=== PATIENT | female | born 1945 | race Asian ===

== ENCOUNTER 2017-04-01 01:19 | Inpatient (IN) | payer OTHER, MEDICARE ==
[~2017-04-01] VITALS: Ht 152.4 cm; Wt 54.0 kg
--- NOTE | 2017-04-01 10:05 | Operative Report ---
Operative/Inv Procedure Report Surgery Date: 04/01/17 Name of Procedure: Left total knee arthroplasty. Pre-Operative Diagnosis: Left knee primary osteoarthritis. Post-Operative Diagnosis: Same. Estimated Blood Loss: less than 50ml Surgeon/Icer Hand: MICHI LO MD / DEBBIE ORDOÑEZ Anesthesia: moderate sedation, Spinal Monitors: EKG/BP/O2 Saturation IV Fluids: Lactated Ringer's. Implants: [employer] PS Knee Components 1. Size 2 Posterior Stabilized Femoral Component. 2. Size 2 Tibial Baseplate 3. Size 2 x 16 mm Tibial Bearing Insert. 4. Size 27 x 8 mm symmetric Patella Component. Urine Output: Adequate. Drains: None. Specimens: Portions of bone and cartilage sent to pathology for histopathological documentation. Microbiology: None. Tourniquet: 62 minutes at 300 mmHg. Complications: None known. Condition: Stable. Operative Indication: The patient is a 71-year-old healthy female with a multiple year progressive history of left knee pain and slowly progressive deformity. Her knee pain was interfering increasingly with quality of life and daily activities. Her treatment was initially conservative and nonoperative with medications and modalities and bracing along with therapy and home exercises. Symptoms continued and we moved on to injection therapy to the knee. This worked for a while but eventually symptoms progressed further. At this point we did discuss the risks and benefits and expected outcomes of continued attempts at nonoperative management which would no longer felt to be acceptable to the patient versus that of operative intervention with total knee arthroplasty. All the patient's questions and her family members who were present at her office visits questions were answered at length. The patient did decide that she would like to move on with total knee arthroplasty for more definitive treatment of her osteoarthritis pain symptoms. Operative/Procedure Note Note: DATE OF SERVICE: 04/01/2017. PREOPERATIVE DIAGNOSIS: Left knee primary osteoarthritis. POSTOPERATIVE DIAGNOSIS: Same PROCEDURE TITLE: Left total knee arthroplasty. SURGEON: Michi Lo M.D. COMMERCIAL LEASING AGENT: DEBBIE Ordoñez. FINDINGS: 1. Same as preop ANESTHESIA: Spinal plus sedation. MONITORS: EKG, BP, O2 saturation, BIS. IV FLUIDS: Lactated Ringer's. IMPLANTS PLACED: [employer] PS Knee Components 1. Size 2 Posterior Stabilized Femoral Component. 2. Size 2 Tibial Baseplate 3. Size 2 x 16 mm Tibial Bearing Insert. 4. Size 27 x 98mm symmetric Patella Component. URINE OUTPUT: Adequate. EBL: Less than 50 ml. DRAINS: None. SPECIMEN: Portions of bone and cartilage sent to pathology for histopathological analysis. TOURNIQUET: 62 minutes at 300 mmHg. COMPLICATIONS: None known. OPERATIVE INDICATIONS: See above. PROCEDURE DESCRIPTION/FINDINGS: The patient was brought to the operating room and placed on the operating room table in the supine position. The patient was then elevated to a seated position at which time the anesthesia staff administered a spinal anesthetic. The patient was then returned to the supine position on the OR table. A dose of IV antibiotics was given for infection prophylaxis. 1 gram of tranexamic acid was given to help minimize acute blood loss during and immediately after surgery. A well-padded tourniquet was applied to the proximal portion of the left thigh. A López catheter was placed in sterile fashion by the nursing staff. All bony prominences were well padded. The nonsterile portion of the Rocha leg tamayo was secured to the OR table. The left foot and ankle were wrapped in a plastic barrier drape secured with tape. The left lower extremity was then prepped and draped in the usual sterile fashion. Bony landmarks and a planned midline anterior longitudinal skin incision were marked on the skin using a sterile marker. An Ioban drape was then applied over and about the knee. The sterile plate for the Rocha leg tamayo was secured in position on the OR table. The left leg, ankle and foot were then padded and secured to the sterile stirrup for the Rocha leg tamayo. The extremity was then exsanguinated with an Esmarch bandage and the pneumatic tourniquet was inflated to a pressure of 300 mm Hg. The skin incision was made with a #10 scalpel blade. Sharp dissection continued down through the skin and subcutaneous tissues down to the level of the extensor mechanism. Full-thickness skin with subcutaneous tissue flaps were raised in a medial and lateral direction sharply with a combination of scalpel and Metzenbaum scissors. Hemostasis was achieved using electrocautery. A medial parapatellar arthrotomy was performed and extended proximally into the quadriceps tendon and distally to the medial side of the tibial tubercle. The patella was everted and a synovectomy about the patella was performed sharply with a scalpel. Osteophytes about the articular margin of the patella were excised using rongeurs. The retropatellar fat pad was excised sharply with a scalpel. A synovectomy of the supracondylar region at the anterior distal femur as well as about the medial and lateral gutters of the knee was also performed sharply, achieving hemostasis with electrocautery. Inspection of the patellofemoral articular cartilage showed full-thickness chondral loss at the trochlear groove as well as significant cartilage wear with fissuring and fibrillation at the patella. The patellar thickness measured 21 mm at the thickest portion of the patella using the patellar caliper. The sagittal saw was used to make a provisional transverse resection cut removing the patella facets and articular cartilage. The patella component sizing template was placed onto the cut surface of the patella. In this case we elected to go with a 27 mm diameter symmetric patellar component. This patellar component has a polyethylene thickness of 8 mm. We therefore resected some more patellar bone to equalize as best as possible the amount of bone resected to correlate with the thickness of the patella component. We therefore in this case resected patellar bone until we were left with a cut patella measuring 13 mm thick as measured with the patellar caliper. The patella drill guide was placed onto the cut surface of the patella and medialized slightly to help with patellofemoral tracking. The patellar component fixation holes were drilled through the drill guide with the appropriate drill. The metal protector for the cut surface of the patella was applied and the patella was subluxated laterally out of the way in to the lateral gutter. The knee was flexed and provisional excision of the medial and lateral menisci as well as the cruciate ligaments were performed sharply with a scalpel. Synovectomy of the intercondylar notch of the distal femur was performed sharply as well. Osteophytes about the intercondylar notch were taken down with rongeurs. The intramedullary drill was used to open the distal femur in a distal to proximal direction beginning roughly 1 cm anterior to the femoral attachment site of the posterior cruciate ligament. The intramedullary monique was attached to the femoral alignment guide which was set at 6 degrees of valgus and with the universal resection block also attached for a planned distal femoral resection of 10 millimeters. The intramedullary monique was impacted through the hole in the distal femur and advanced until the attached femoral alignment guide was resting against the most prominent portion of the distal femoral condyles. The femoral alignment guide was then secured in position with pins. The distal resection guide was pinned to the anterior femur. The intramedullary monique and femoral alignment guide were then removed leaving the distal resection guide in place. The modular capture for the sagittal saw was attached and the distal femoral resection cuts were made with the sagittal saw making sure to protect the soft tissues. The distal femoral resection guide was removed and the distal femoral resection cut was checked and was felt to be satisfactory. The femoral sizer was set for 3 degrees of external rotation and then it was placed in to position on the cut surface of the distal femur with the feet of the sizer slipped underneath the femoral condyles. We determined the level of anterior bone resection and femoral sizing in this case to be best with a size 2 as checked with both the femoral stylus and the tanya wing checked through both the medial and lateral femoral sizing slots. Once we determined the appropriate level for anterior bone resection, and consequently the proper femoral sizing, the peg drill to make holes for placement of the four in one cutting block was drilled through the EPI holes in the femoral sizing jig. The femoral sizer was removed, and the four in one cutting block was secured to the distal femur with the fixation pegs placed in to the previously drilled holes made through the femoral sizing jig. Retractors were placed for soft tissue protection and the distal femoral resection cuts were made sequentially beginning with the anterior femoral cut, followed by the posterior condyle cuts, followed by the anterior chamfer cut, and finally the posterior chamfer cut. Bone fragments following the cuts were removed. A size 2 PS box cutting guide was placed on to the cut distal femur and positioned optimally in a medial-lateral direction and then pinned in position. The box chisel was inserted in to the slot for the box cutting guide and then impacted with a mallet until it was fully seated. A sagittal saw was then used to make the bone cuts for the medial and lateral edges of the bone to be resected for the box cut. The box cut bone was then removed after freeing it from soft tissue attachments. The box cutting guide was removed and attention was turned to preparation of the proximal tibia. The pickle fork retractor was placed behind the upper central tibial plateau and used to lever the proximal tibia anteriorly. Final resection of the remnants of the medial and lateral menisci and the tibial intercondylar insertion site of the ACL was performed sharply with a scalpel. The intramedullary drill was used to open a hole in the intercondylar region in line with the tibial medullary canal. The tibial intramedullary alignment monique pre-assembled with the tibial resection guide set for a 3 degree posterior slope was placed into the tibial intramedullary canal and advanced until the tibial stylus for a 4 mm bone resection was resting at the lowest level of the medial compartment. The tibial resection guide was then pinned in position. The modular capture for the sagittal saw was attached and then the sagittal saw was used to make the proximal tibia resection cut, making sure to protect the soft tissues with retractors. The cut proximal tibia bone was removed after freeing it up from soft tissue attachments. Osteophytes along the upper margin of the tibia at the level of the bone resection were removed with rongeurs. The tibial tray sizing templates were placed on to the cut surface of the proximal tibia and used to determine the best size for the tibial tray component. In this case a size 2 sizing template fit very nicely. We next removed excess osteophytes from the posterior femoral condyles with an osteotome and removed the bone fragments with a curette. We next impacted a size 2 trial femoral component in to position and visually confirmed it to be well seated and in good position. We next placed a size 2 trial tibial template with a provisional 11 millimeters thickness trial tibial spacer on to the cut surface of the knee and reduced the knee. The knee was checked for stability and extension and there was some laxity on both medial and lateral stress testing of the knee somewhat asymmetrical with increased varus laxity on stress testing of the LCL. We performed a limited medial soft tissue release which did make the laxity more or less symmetric. The knee was put through range of motion. She showed slight hyperextension of the knee in the sagittal plane. She also showed knee flexion to approximately 140. The knee was extended again and the trial tibial component was allowed to rotate on its own into slight internal rotation. The upper anterior tibial cortical bone was scored with an electrocautery in line with the notches on the anterior aspect of the tibial trial to set proper rotation of the true tibial components when placed. A size 27 mm trial symmetric patellar component was placed and patellofemoral tracking was assessed. In this case we felt that the patella was tracking laterally. We performed a progressive lateral release which did improve things. After a complete progressive lateral release there was still a tendency for the patella to subluxate laterally, but certainly to a lesser degree following the lateral release. It was my feeling that the patient's tendency for the patella to subluxate laterally was due to the exaggerated tibiofemoral valgus alignment in the coronal plane demonstrated on standing AP films of the knees. The tibial trial component was then pinned in position after removing the trial spacer. An appropriate size keel punch guide was placed in to the tibial trial component and then the keel punch was impacted using a mallet. The keel punch and guide were removed as was the tibial trial template. The trial femoral and patellar components were also removed. With the trial components now all removed we used this opportunity to inject the posterior and posteromedial and posterolateral joint capsule with the Exparel liposomal bupivacaine to help with operative analgesia. Attention was now directed towards placement of the true components. All cut bony surfaces as well as the soft tissues about the bone were copiously irrigated with a pulsatile lavage system. The irrigated cut surfaces of the bone were dried with lap pads. While this was being performed, the proper sized true femoral, tibial, and patellar components for implantation were opened and cement was mixed per protocol. Once the cement was set to the proper consistency, attention was directed towards cementing the true components in position. Beginning with the tibial component we applied some cement to the cut upper surface of the proximal tibia and also injected some cement down in to the intramedullary canal through the keel punch slot made earlier. The cement on the upper tibia was manually pressed and massaged in to the bone for better interdigitation. A thin layer of cement was also applied to the back side of a size 2 tibial tray component. The tibial tray component was then impacted in to position on to the cut surface of the proximal tibia making sure that the orientation of the keel of the component matched the keel slot cut in to the proximal tibia. Excess cement was removed from around the margins of the proximal tibia with curettes, and pickups and scalpels. The tibial tray was further impacted and further extruded cement from the margins of the base plate was again removed in similar fashion. We next turned our attention to the distal femur where cement was applied with a cement gun and then interdigitated manually in similar fashion to the bone of the anterior and distal femur, leaving the posterior femoral condyle cuts free from cement for the moment. A thin layer of cement was applied to the posterior femoral condyles of a size 2 femoral component and then the femoral component was impacted in to position. In similar fashion as before, excess cement was removed, the femoral component was impacted further and additional excess cement was once again removed. We next placed a trial 13 mm thickness tibial bearing component in place and reduced the knee and checked stability and range of motion. Once again we felt that there was some hyperextension of the knee as well as some symmetric laxity in both varus and valgus stress testing of the knee even with the 13 mm thickness tibial trial bearing component in place. We therefore moved up the next size up to a 16 mm thickness tibial trial bearing component. This was put in position and the knee was reduced and put through range of motion and stability testing. We still had excellent flexion to 135-140. We had full extension but no real hyperextension. Laxity testing was much more satisfactory on both varus and valgus stress testing. We therefore removed the trial tibial bearing component. We irrigated the tibial tray and back of the knee again and then we inserted a 16 mm thick size 2 tibial bearing component and impacted it until it was locked within the tibial tray component. We checked fixation of the bearing component within the tibial tray and were satisfied. After making sure that there was no bone or cement fragments or any other obstruction to reduction, we reduced the tibial component to the femoral component and maintained the knee fully extended while the fixation cement set up. We next turned our attention to placement of the patellar component. Once again cement was applied and then manually interdigitated in to the fibers of the cut surface of the patella as well as in to the fixation holes for the patellar component. A thin layer of cement was applied to the back surface of a size 27 mm symmetric patellar component and then the patellar component was placed on to the cut surface of the patella with the pegs for the patellar component properly positioned in to the peg holes in the bone. A patellar compression clamp was placed to temporarily secure the patellar component in position. Once again all excess cement was removed and the cement was allowed to set up. The knee was put through final range of motion and stability testing, all of which was felt to be acceptable. Patellofemoral tracking was checked again and did still show a slight tendency to subluxate laterally. This was correctable with slight finger pressure 1. I felt that there was no other lateral release or change in components that I could use to improve the tendency of the patella to laterally subluxate and that the cause of the residual lateral subluxation was due to the patient's natural anatomy. With the true components now implanted our attention was directed towards closure. The knee joint and all prosthetic components as well as the soft tissues were irrigated with a pulsatile lavage. Another gram of tranexamic acid was infused by the anesthesia staff prior to dropping the tourniquet. The medial and lateral gutters and joint capsule and surrounding soft tissues as well as the anterior joint capsule and the extensor mechanism were then all injected with the remainder of the Exparel liposomal bupivacaine. At this time we the tourniquet was deflated after tourniquet time of 62 minutes. Hemostasis was achieved with electrocautery and manual pressure. The arthrotomy was repaired using size #1 Vicryl sutures placed in interrupted [id number] fashion. The soft tissues were irrigated once again with the pulsatile lavage. The subcutaneous tissues were closed in layers using #1 Vicryl suture placed in interrupted buried fashion in the deeper subcutaneous tissues. The more superficial subcutaneous tissues were repaired using 2-0 Vicryl placed in interrupted buried fashion as well. The skin margins were then approximated using a skin stapler. The Hemovac drain was connected to the tubing. The wounds were all washed and dried. Adaptic dressing was placed over the Steri- Strips line and about the Hemovac drain tubing exit site in the skin. Gauze dressings followed by abdominal pads were applied over the wound and the Hemovac drain. Webril cotton padding was applied about the knee over the dressings. The extremity was then wrapped with Edgar bandages from the toes distally to the upper thigh proximally to hold the dressings in place and to also provide some compression to the knee joint and to the extremity in general postoperatively to minimize swelling of the knee and hopefully minimize venous pooling in the extremity which might result in a DVT. The patient was extubated and then awakened from general anesthesia and then transferred to a hospital bed and brought to the PACU having tolerated the procedure well.
[2017-04-01 11:30] VITALS: BP 106/68
--- NOTE | 2017-04-01 12:25 | PN- Orthopedic ---
See Addendum Subjective Subjective: The patient was seen this afternoon postoperatively. She reports with her daughter interpreting that she is comfortable and currently without pain at the current time. She had no other complaints and has yet to work with physical therapy. Objective Vital Signs and I&Os Vital Signs Date Time Temp Pulse Resp B/P B/P Pulse O2 O2 Flow FiO2 Mean Ox Delivery Rate 04/01 1130 95.2 84 18 106/68 96 Room Air Intake & Output 04/01 1600 04/01 0804/01 0000 03/31 0803/31 0000 Intake Total Output Total Balance Patient 120 lb Weight Weight Estimated Measurement Method I's and O's: 2000 ML's in of lactated Ringer's/490 ML's out of urine via López catheter/EBL 50 ML's Physical Exam: Gen.: Alert and in no obvious distress Skin: Warm and dry Cardiac: S1-S2 regular Pulmonary: Bilateral breath sounds were equal and slightly decreased at bases Extremities: Bilateral lower extremities are warm without calf tenderness or significant edema. Was motor and sensory were intact. Left knee surgical dressing is clean, dry, and intact. It was On-Q pain pump in place. Assessment/Plan Assessment/Plan Assessment: 71-year-old female status post left total knee arthroplasty. Postoperative the patient is progressing as expected and her pain is under adequate control. Plan: Out of bed with physical therapy patient is weightbearing as tolerated Continue IV fluids and López catheter until the morning Strict I's and O's Follow-up morning laboratory studies 1 dose of postoperative prophylactic antibiotics Advance diet as tolerated Resume home medications GI and DVT prophylaxis first dose of Coumadin to be given tonight Incentive spirometry Core Measures/Miscellaneous López Catheter Date In: 04/01/17 Still Needed? Yes Venous Thromboembolism VTE Risk Factors: Age > 40, Surgery VTE Contraindications: No Contraindications VTE Diagnosis: No Beta Luis Fernando Is Beta Luis Fernando a Home Med? No Antibiotics Is Patient on Antibiotics? Yes If Yes: prophylaxis
[2017-04-01 14:31] VITALS: BP 116/80
[2017-04-01 16:34] VITALS: BP 112/78
[2017-04-01 18:29] VITALS: BP 110/76
[2017-04-01 22:08] VITALS: BP 110/78
[2017-04-02 03:14] VITALS: BP 112/64
[2017-04-02 06:00] VITALS: BP 116/64
--- NOTE | 2017-04-02 07:00 | PN- Orthopedic ---
See Addendum Subjective Subjective: POD#1 S/P LEFT TKA NO MAJOR ISSUES OVERNIGHT RESTING COMFORTABLY NOW DENIES CP, SOB, NO N+V Objective Vital Signs and I&Os Vital Signs Date Time Temp Pulse Resp B/P B/P Pulse O2 O2 Flow FiO2 Mean Ox Delivery Rate 04/02 0600 98.1 106 16 116/64 94 Room Air 04/02 0314 97.8 102 16 112/64 93 Room Air 04/01 2208 97.9 75 20 110/78 95 04/01 1829 95 110/76 04/01 1634 92 112/78 04/01 1431 97.9 100 20 116/80 96 Room Air 04/01 1130 95.2 84 18 106/68 96 Room Air Intake & Output 04/02 0800 04/02 0000 04/01 1600 04/01 0800 04/01 0000 03/31 1600 Intake Total 960 635 Output Total 1100 1200 3000 Balance -140 -565 -3000 Intake, IV 600 625 Intake, Oral 360 10 Output, Urine 1100 1200 3000 Patient 120 lb Weight Weight Estimated Measurement Method Physical Exam: CV: RRR LUNGS: CLEAR ABD: SOFT, +BS EXT: DRSG DRY DISTAL CMS INTACT BILAT ONQ IN PLACE Assessment/Plan Assessment/Plan ORTHO STABLE PLAN CAMPOS D/C'D AT 6AM - DTV AROUND NOON HOLD COUMADIN TODAY WILL REDOSE IN AM BASED ON INR OOB WITH PT, WBAT LEFT LE DESIRES TO GO HOME UPON D/C Core Measures/Miscellaneous Campos Catheter Date In: 04/01/17 Venous Thromboembolism VTE Risk Factors: Age > 40, Surgery VTE Contraindications: No Contraindications VTE Diagnosis: No Beta Luis Fernando Is Beta Luis Fernando a Home Med? No Antibiotics Is Patient on Antibiotics? Yes If Yes: prophylaxis
[2017-04-02 07:54] LABS: ABSOLUTE BASOPHIL COUNT 0 /CUMM (0.0-0.2); ABSOLUTE EOSINOPHIL COUNT 0 /CUMM (0.0-0.7); ABSOLUTE GRANULOCYTE CT 10.8 /CUMM (1.4-6.5); ABSOLUTE LYMPH COUNT 2.4 /CUMM (1.2-3.4); ABSOLUTE MONOCYTE COUNT 1.2 /CUMM (0.10-0.60); BASOPHIL % 0.2 % (0.0-2.0); EOSINOPHIL % 0 % (0-5); GRANULOCYTE % 75.1 % (42.2-75.2); HEMATOCRIT 31.3 % (37-47); MEAN CORPUSCULAR HGB 29.2 PG (27.0-31.0); MEAN CORPUSCULAR HGB CONC 33.7 G/DL (33.0-37.0); MEAN CORPUSCULAR VOLUME 86.5 FL (81.0-99.0); MEAN PLATELET VOLUME 8.2 FL (7.4-10.4); PLATELET COUNT 282 /CUMM (130-400); RBC DISTRIBUTION WIDTH 13.6 % (11.5-14.5); RED BLOOD CELL CT 3.62 /CUMM (4.20-5.40); WHITE BLOOD CELL COUNT 14.3 /CUMM (4.8-10.8)
[2017-04-02 08:20] LABS: PT 11.2 SEC (9.4-12.5)
[2017-04-02 12:38] VITALS: BP 100/70
[2017-04-02 14:36] VITALS: BP 110/62
[2017-04-02 22:59] VITALS: BP 102/54
[2017-04-03 06:00] VITALS: BP 102/60
[2017-04-03 07:54] LABS: ABSOLUTE BASOPHIL COUNT 0 /CUMM (0.0-0.2); ABSOLUTE EOSINOPHIL COUNT 0 /CUMM (0.0-0.7); ABSOLUTE GRANULOCYTE CT 9.3 /CUMM (1.4-6.5); ABSOLUTE LYMPH COUNT 1.9 /CUMM (1.2-3.4); ABSOLUTE MONOCYTE COUNT 1.1 /CUMM (0.10-0.60); BASOPHIL % 0.2 % (0.0-2.0); EOSINOPHIL % 0 % (0-5); GRANULOCYTE % 75.6 % (42.2-75.2); HEMATOCRIT 27.4 % (37-47); MEAN CORPUSCULAR HGB CONC 33.4 G/DL (33.0-37.0); MEAN CORPUSCULAR VOLUME 86.8 FL (81.0-99.0); PLATELET COUNT 279 /CUMM (130-400); RBC DISTRIBUTION WIDTH 14.2 % (11.5-14.5); RED BLOOD CELL CT 3.15 /CUMM (4.20-5.40); WHITE BLOOD CELL COUNT 12.4 /CUMM (4.8-10.8)
[2017-04-03 08:25] LABS: PT 14.9 SEC (9.4-12.5)
--- NOTE | 2017-04-03 08:36 | RADIOLOGY REPORT ---
EXAMINATION: XR KNEE, LEFT CLINICAL INFORMATION: Left total knee arthroplasty COMPARISON: X-ray left knee dated 05/16/2016 TECHNIQUE: Two views of the left knee. FINDINGS: Postoperative changes with surgical skin tianna . Status post left knee arthroplasty. Prosthesis is well seated. Soft tissue swelling noted in the prepatellar, suprapatellar and infrapatellar soft tissues and air within the joint space and soft tissues compatible with recent postoperative change. Elliptical lucency noted in the bone marrow within the proximal tibial diaphyses inferior to the prosthesis may also represent postoperative change. This was not seen on the prior examination. Clinical/surgical correlation recommended. No evidence of acute fracture. IMPRESSION: Postoperative changes.
--- NOTE | 2017-04-03 11:19 | PN- Orthopedic ---
See Addendum Subjective Subjective: DAUGHTER TRANSLATES , STATES THAT PT. IS GENERALLY WEAK. PAIN IS WELL CONTROLLED. PT. FEARFUL TO PUT WEIGHT ON RIGHT LEG, BUT DENIES PAIN Objective Vital Signs and I&Os Vital Signs Date Time Temp Pulse Resp B/P B/P Pulse O2 O2 Flow FiO2 Mean Ox Delivery Rate 04/03 06 99.3 102 18 102/60 96 Room Air 04/02 2259 98.8 107 20 102/54 95 Room Air 04/02 1436 97.9 84 18 110/62 96 04/02 1238 99.4 99 20 100/70 96 Intake & Output 04/03 1600 04/03 0800 04/03 0000 04/02 1600 04/02 0800 04/02 0000 Intake Total 360 480 480 960 635 Output Total 644 850 7120 1200 Balance 360 280 280 -140 -565 Intake, IV 600 625 Intake, Oral 360 480 480 360 10 Number 0 Bowel Movements Output, Urine 222 323 0724 1200 ALERT, ORINTED, APPROPRIATE LUNGS CLEAR COR REGULAR ABDOMEN BENIGN R KNEE DRESSING C/D/I. WOUND IS CLEAN , JESSICA INTACT. MEDIAL ASPECT FORM INCISION TOWARDS INNER THGIGH IS WARM TO TOUCH WITH BRUISING AND DARK SKIN DISCOLORATION LIKELY FROM SUPERFICIAL HEMATOMA. NO ERYTHREMA OR DRAINAGE. MILD PERIINCISIONAL SWELLING PRESENT. CMS INTACT NO CALF PAIN Assessment/Plan Assessment/Plan S/P R TKA FOR DJD POD#2 MILD ANEMIA SECONADRY TO POST BLOOD LOSS BUT EXPECTED. MILD TACHYCARDIA, WILL MONITOR, WILL RECHECK CBC/BEP FOR TOMORROW AM SHE WAS AMBULATING WITH PT THIS MORNING AND HAS BEEN DOING MUCH BETTER TODAY PAIN WELL CONTROLLED WITH CURRENT REGIMEN WOUND WITHOUT INFECTION,LIKELY SUPERFICIAL HEMATOMA/ BRUISING ON MEDIAL ASPECT. DRESSING CHANGED.WILL MONITOR. WILL DOSE COUMADIN FOR TODAY ANTICIPATE SHORT TERM REHAB AT DISCHARGE Core Measures/Miscellaneous López Catheter Date In: 04/01/17 Venous Thromboembolism VTE Risk Factors: Age > 40, Surgery VTE Contraindications: No Contraindications VTE Diagnosis: No Beta Luis Fernando Is Beta Luis Fernando a Home Med? No Antibiotics Is Patient on Antibiotics? Yes If Yes: prophylaxis
[2017-04-03 14:31] VITALS: BP 120/80
[2017-04-03 22:41] VITALS: BP 112/68
[2017-04-04 06:50] VITALS: BP 128/64
[2017-04-04 07:04] VITALS: BP 120/72
[2017-04-04 07:54] LABS: ABSOLUTE BASOPHIL COUNT 0 /CUMM (0.0-0.2); ABSOLUTE EOSINOPHIL COUNT 0.1 /CUMM (0.0-0.7); ABSOLUTE GRANULOCYTE CT 8.5 /CUMM (1.4-6.5); ABSOLUTE LYMPH COUNT 2.8 /CUMM (1.2-3.4); ABSOLUTE MONOCYTE COUNT 0.9 /CUMM (0.10-0.60); BASOPHIL % 0.3 % (0.0-2.0); EOSINOPHIL % 0.9 % (0-5); GRANULOCYTE % 68.7 % (42.2-75.2); HEMATOCRIT 27.9 % (37-47); MEAN CORPUSCULAR VOLUME 87.9 FL (81.0-99.0); MEAN PLATELET VOLUME 7.9 FL (7.4-10.4); PLATELET COUNT 274 /CUMM (130-400); RBC DISTRIBUTION WIDTH 13.8 % (11.5-14.5); RED BLOOD CELL CT 3.17 /CUMM (4.20-5.40); WHITE BLOOD CELL COUNT 12.4 /CUMM (4.8-10.8)
[2017-04-04 08:15] LABS: PT 14.9 SEC (9.4-12.5)
--- NOTE | 2017-04-04 08:23 | PN- Orthopedic ---
See Addendum Subjective Subjective: pod# 3 s/p left tka doning well with pt less pain today denies cp, sob, no n+v with diet tolerating diet Objective Vital Signs and I&Os Vital Signs Date Time Temp Pulse Resp B/P B/P Pulse O2 O2 Flow FiO2 Mean Ox Delivery Rate / 0704 98.7 95 18 120/72 98 Room Air / 0650 98.3 78 18 128/64 96 Nasal Cannula 04/03 2241 98.4 102 18 112/68 97 Room Air 04/03 1459 Room Air 04/03 1431 98.5 100 18 120/80 97 Room Air Intake & Output 06/ 1600 06 0800 04/04 0000 04/03 1600 04/03 0800 04/03 0000 Intake Total 180 50 610 360 480 Output Total 300 200 Balance -120 50 610 360 280 Intake, IV 20 10 Intake, Oral 180 30 600 360 480 Number 0 Bowel Movements Output, Urine 300 200 Physical Exam: cv: rrr lungs: clear abd: soft, +bs no calf tenderness bialt distal cms intact Assessment/Plan Assessment/Plan ortho stable plan cont oob with pt titrate coumadin for inr 2-3 home d/c planning Core Measures/Miscellaneous López Catheter Date In: 04/01/17 Venous Thromboembolism VTE Risk Factors: Age > 40, Surgery VTE Contraindications: No Contraindications VTE Diagnosis: No Beta Luis Fernando Is Beta Luis Fernando a Home Med? No Antibiotics Is Patient on Antibiotics? Yes If Yes: prophylaxis
--- NOTE | 2017-04-04 08:26 | Patient Discharge Instructions ---
Discharge Instructions General Discharge Information You were seen/treated for: left knee djd You had these procedures: keft total knee arthroplasty Watch for these problems: temp>101.5, increased wound drainage/redness, increased pain Call Surgeon to remove: Fe No bath, but you may shower: Yes Other wound care: keep wound clean and dry Diet Continue normal diet: Yes Recommended Diet: Regular Activity Activity Limited to: Weight bear as tolerated Other activity limits: knee arthroplasty protocol. Acute Coronary Syndrome Inclusion Criteria At DC or during hospital stay patient has or had the following: ACS DIAGNOSIS No Discharge Core Measures Meds if any: Prescribed or Continued at Discharge Meds if any: NOT Prescribed or Continued at Discharge Congestive Heart Failure Inclusion Criteria At DC or during hospital stay patient has or had the following: CHF DIAGNOSIS No Discharge Core Measures Meds if any: Prescribed or Continued at Discharge Meds if any: NOT Prescribed or Continued at Discharge Cerebrovascular accident Inclusion Criteria At DC or during hospital stay patient has or had the following: CVA/TIA Diagnosis No Discharge Core Measures Meds if any: Prescribed or Continued at Discharge Meds if any: NOT Prescribed or Continued at Discharge Venous thromboembolism Inclusion Criteria VTE Diagnosis No VTE Type NONE VTE Confirmed by (Test) NONE Discharge Core Measures - Per Current guidelines, there needs to be overlap - treatment for the first 5 days of Warfarin therapy. - If discharged on Warfarin prior to 5 days of - overlap therapy, the patient will need to be - assessed for post discharge needs including - *Post discharge parental anticoagulation - *Warfarin and/or parental anticoagulation education - *Follow up date to check INR post discharge At least 5 days overlap therapy as Inpatient No Meds if any: Prescribed or Continued at Discharge Note: Overlap Therapy is Warfarin and Anticoagulant Meds if any: NOT Prescribed or Continued at Discharge
[2017-04-04] MEDS ORDERED: MIRALAX119 GM PO (08:32)
[2017-04-04] MEDS ORDERED: SENNA PLUS TAB1 EACH PO (08:32)
[2017-04-04] MEDS ORDERED: PERCOCET 5-3251 EACH PO (08:32)
[2017-04-04] MEDS ORDERED: DOCUSATE SODIU100 M3 PO (08:32)
[2017-04-04] MEDS ORDERED: COUMADIN5 M2 PO (11:07)
--- NOTE | 2017-04-04 12:13 | Discharge Summary ---
Visit Information Visit Dates Admission Date: 04/01/17 Discharge Date: 04/04/17 Hospital Course Course Attending Physician: GUNNER LO MD Primary Care Physician: BON MOSES Hospital Course: Ms. Kraft was taken to the operating room on left total knee arthroplasty. She tolerated the procedure well and she was transferred to the floor. She was out of bed with physical therapy postop day 1, and tolerated physical therapy to advance to home discharge. She was also placed on Coumadin for DVT prophylaxis and dosages were titrated to maintain an INR between 2 and 3. Hospital stays otherwise unremarkable Allergies: Coded Allergies: Penicillins (RASH 03/20/17) Significant Procedures: left total knee arthroplasty Pertinent Lab Results: Daily INR Disposition Summary Disposition Principal Diagnosis: Left knee DJD Additional Diagnosis: None Discharge Disposition: home health services Discharge Instructions General Discharge Information Code Status: Full Code Patient's Diet: Regular diet Patient's Activity: May be weightbearing as tolerated left lower extremity Follow-Up Instructions/Appts: Coumadin dosages should be titrated to daily INR and INR should be maintained 2- 3 for DVT prophylaxis. Keep wound clean and dry with dry sterile dressing daily Follow-up with Dr. Lo in office for staple removal Medications at Discharge Discharge Medications: Start taking the following new medications: Oxycodone HCl/Acetaminophen (Percocet 5-325 MG Tablet) 5 MG-325 MG TABLET 1-2 Tablet ORAL EVERY 4 HOURS NEEDED as needed for PAIN SCALE 1-4 Qty = 36 No Refills Docusate Sodium (Docusate Sodium) 100 MG CAPSULE 1 Tablet ORAL TWICE DAILY Qty = 30 No Refills Polyethylene Glycol 3350 (Miralax) 17 GRAM/DOSE POWDER 1 Packet ORAL DAILY NEEDED as needed for NO BM IN TWO DAYS Qty = 7 No Refills Sennosides/Docusate Sodium (Senna Plus Tablet) 8.6 MG-50 MG TABLET 2 Tablet ORAL Every night as needed as needed for NO BM IN TWO DAYS Qty = 30 No Refills Warfarin Sodium (Coumadin) 5 MG TABLET 1 Tablet ORAL DAILY Qty = 30 No Refills Copies To: GUNNER LO MD
[2017-04-04] MEDS ORDERED: RW (14:35)
== END 2017-04-04 14:54 | disposition home health service (06) | DRG 470 ==
LOC: SDA 01:19 → 2NA 01:19 → ENRESERV 10:41 → 2NA 11:22 → ENPENDDIS 04-04 09:00 → 2NA 04-04 14:54
PROVIDERS: Physician Assistant; Physician Assistant Surgical; ADMIT Orthopaedic Surgery
PROC: 0SRD0J9 Replacement of Left Knee Joint with Synthetic Substitute, Cemented, Open Approach (ICD-10-PCS; principal; 2017-04-01)
PROC: 3E0T3CZ (ICD-10-PCS; 2017-04-01)
DX: M17.12 Unilateral primary osteoarthritis, left knee (principal); D62 Acute posthemorrhagic anemia; R00.0 Tachycardia, unspecified
CPT/HCPCS: 2NASP; 36415; 73560-LT; 82436; 87086; 88305; 97110-GO; 97116-GO; 97161-GP; 97530-GO; C1713; C9290; J0131; J2405; J2795; J3370; J7040